=== PATIENT | female | born 1955 | race Two or more races ===

== ENCOUNTER 2017-01-04 09:08 | Emergency (ER) | payer SELFPAY ==
--- NOTE | ~2017-01-04 | CR63 ---
[facility] A Service of [facility] RADIOLOGY TEXT RESULTS PATIENT: MISTY SARAVIA LOCATION: [facility] : 53 UNIT #: [id number] AGE: [address]: Ismael Olguin MD SEX: F ORDER DR: [id number] [facility] [address] [place], [place] [address] [id number] E MR#: [id number] Acc #: [id number] NAME: MISTY SARAVIA : 1955 SEX: F STUDY DATE/TIME: 01/04/2017 0943 UNIT: [facility] ROOM: STUDY DESCRIPTION: CR Chest 2 View Attending Physician: Ismael Olguin M.D. Ordering Physician: Ismael Olguin M.D. [facility] RE[facility] This report is preliminary unless electronic signature is present EXAM Chest, 2 views, 01/04/2017, 0943 hours. CLINICAL HISTORY 62-year-old with cough, fever, nausea, vomiting today. COMPARISON 12/27/2014 and 10/17/2014 FINDINGS Upright PA and lateral views of the chest demonstrate normal heart size with a stable tortuous descending thoracic aorta. The lungs are clear with stable calcified granulomata. There is no acute pulmonary density or pleural effusion. IMPRESSION No acute cardiopulmonary findings. No appreciable change from 10/20/2014. Dictated by... Tara Ruth M.D. THIS IS AN ELECTRONICALLY VERIFIED REPORT Tara Ruth M.D. at 01/04/2017 2:29 PM ALBERTO/melissa TD: 01/04/2017 12:02 JOB #: [id number] MEDICAL IMAGING REPORT Page 1 of 1 COPY
[2017-01-04 09:47] LABS: INFLUENZA A NEG (NEG); INFLUENZA B NEG (NEG)
== END 2017-01-04 10:39 | disposition home or self-care (01) ==
LOC: CED 09:08
PROVIDERS: Emergency Medicine
DX: J40 Bronchitis, not specified as acute or chronic (principal)
CPT/HCPCS: 71020; 87651; 87804; 99283